=== PATIENT | male | born 1935 | race Caucasian/White ===

== ENCOUNTER 2019-06-02 05:22 | Inpatient (IN) | payer OTHER ==
[~2019-06-02] VITALS: Ht 172.7 cm; Wt 78.9 kg
[~2019-06-02 05:22] MED LIST: ACETAMINOPHEN-1 EAC1 PO; ACTOS15 MG PO; ADULT LOW DOSE81 MG; AMLODIPINE; ANAPROX; COUMADIN; DECONGESTANT NA15 ML NS; DICLOFENAC; GLIPIZIDE 10 MG10 MG PO; GLIPIZIDE ER2.5 MG; LISINOPRIL20 MG PO; NORVASC10 MG PO; OXYCODON-ACETA1 EAC1; SIMVASTATIN20 MG; TAMIFLU PO; TRADJENTA5 MG; VALIUM5 MG PO; VITAMIN D-32000 UNIT; VITAMIN D5000 UNIT PO; ZOCOR20 MG PO
[2019-06-02 06:23] VITALS: BP 177/84
--- NOTE | 2019-06-02 12:55 | NUR ---
PT ADMITTED RELATED TO LUMBAR LAMINECTOMY/DISCECTOMY. CM REVEIWED CHART AND SPOKE WITH CARE TEAM. CM MET WITH PT AND DTR AT BEDSIDE THIS DAY. PT IS A&0 X4. THEY INDICATED THAT THEY RESIDE TOGETHER IN A MOBILE HOME WITH 4 STEPS TO ENTER AND NO STEPS INSIDE. 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 PT INDICATED NO DME OR HH HX. PT INDICATED HE PLANS TO RETURN HOME [facility] MEDICALLY STABLE. CM TO FOLLOW INDICATED WITH DC PLANNING.
[2019-06-02 13:00] VITALS: BP 107/52
[2019-06-02 17:00] VITALS: BP 105/70
[2019-06-02 19:59] VITALS: BP 126/70
--- NOTE | 2019-06-03 04:22 | NUR ---
ASSUMED CARE OF PT @1900. PT A&OX4 AT THIS SHIFT. HEMOVAC DRAIN INTACT AND LARGE ABD DRESSING FROM POSTOP LAMINECTOMY INTACT. SCD'S IN PLACE. C/O BACK PAIN OF 8, PAIN MEDS GIVEN FOR MANAGEMENT. USES BEDSIDE URINAL AND MAKES NEEDS KNOWN TO NURSE. DTR SPEND THE NIGHT AT BEDSIDE. POC DONE AND FLUIDS INFUSING. POSSIBLE D/C TODAY WILL CONTINUR TO MONITO TILL EOS
[2019-06-03 05:04] VITALS: BP 151/79
--- NOTE | 2019-06-03 07:56 | O ---
[facility] [place] [address] OPERATIVE REPORT Name: SANJAY PETERSEN Room #: 462-P ADM IN M.R.#: [id number] Admission: 06/02/19 ������������������ Attend Phys: Homero Conroy MD Discharge: ������������������ Date of : 33 Report #: [id number] THIS REPORT FOR: //name// CC: Homero Amato DATE OF SERVICE: 06/02/2019 PREOPERATIVE DIAGNOSES: Lumbar spinal stenosis and lumbar disk herniation, L4-L5. POSTOPERATIVE DIAGNOSES: Lumbar spinal stenosis and lumbar disk herniation, L4-L5. PROCEDURE: Decompressive laminectomy at L4 and L5 for spinal stenosis and diskectomy at L4-L5. SURGEON: Homero Conroy M.D. INDICATIONS: This 83-year-old gentleman remains active and fully independent, living at home with his . He complains of progressive bilateral leg pain, numbness and weakness. He has difficulty with any prolonged standing or walking and has some sense of numbness and weakness in both lower legs and feet. His subjective symptoms are slightly greater on the right than the left, but involve both legs. He also notes moderate low back discomfort. Clinical exam, x-rays and MRI scan confirm moderate multilevel degenerative lumbar spondylosis. This involves some facet change and disk bulging at multiple levels. This is most severe at L4-L5, where the canal is quite narrow. The disk is bulging at that side, slightly more toward the left than the right. There is also disk bulging and foraminal narrowing at L5-S1, more toward the right than the left. There is similar, but less severe, bulging at L2-L3 and L3-L4 levels. I feel his problem is principally a generalized lumbar stenosis issue with contributing factors from disk bulging and facet hypertrophy as well as hypertrophy of the ligamentum. We have elected to go ahead with decompressive laminectomy principally to address the spinal stenosis at L4-L5 level, with a planned exploration of the disk at those two levels as well. DESCRIPTION OF PROCEDURE: The patient was taken to the operating room, where he was placed under general anesthesia. Prophylactic intravenous antibiotics were administered. He was turned to the prone position. The lower back was meticulously prepped and draped. C-arm was used to localize the appropriate level. A skin incision was made from the L3 down to the S1 level. This was carried through subcutaneous tissues and fascia, exposing the spinous process and lamina bilaterally. Once satisfactory exposure was established, the spinous process of L4 and L5 were removed and a laminectomy of those two levels was performed. This was accomplished with some difficulty as there was significant [facility] [address] [place] [address] OPERATIVE REPORT Name: SANJAY PETERESN Chey Room #: 462-P [facility] IN M.R.#: [id number] Admission: 06/02/19 ������������������ Attend Phys: Homero Conroy MD Discharge: ������������������ Date of : 34 Report #: [id number] canal stenosis and significant bony hypertrophy and spurring. The dissection was carried out laterally, both toward the right and left, undercutting the facet joint, but not removing the entire facet to maintain stability. This did seem to decompress the canal quite nicely. The dissection was carried proximally as the canal was still slightly tight partially through the L3 lamina. The extent of the dissection was checked with C-arm and felt to be satisfactory. Once the lateral gutters were debrided and the facet joint undercut, there seemed to be good resolution and improvement in the spinal stenosis. The disk was then carefully visualized at L4-L5 and L5-S1 levels. The L5-S1 disk is firm and mildly prominent, more toward the right than the left. This did not seem to be consistent with an extruded disk herniation and I felt the decompression from the laminectomy and foraminotomy was sufficient. No exploration of that disk was felt to be necessary. At L4-L5, the disk was much more prominent in the midline and extending more toward the left than the right. There was an area of marked attenuation of the annulus and ligamentum, but without an extruded fragment. This area was opened with an 11 blade and a moderate-sized disk fragment bolts forth. This was removed. A good deal of additional loose degenerative disk debris was removed from within the disk space. This seemed to decompress the disk nicely and the canal seemed to be further improved. This was confirmed with the C-arm with a probe in the disk, confirming this was at the L4-L5 level. At this point, I felt no further decompression was necessary. Good hemostasis was accomplished with Gelfoam and thrombin. The wound was copiously irrigated. No other abnormalities were identified. A small sheet of Gelfoam soaked in thrombin was left over the exposed dura. The muscle layer and fascia were closed with multiple #1 Vicryl sutures. This was supplemented with a running 0 Monocryl suture. A single Hemovac was left in the subcutaneous tissues with the tail extending below the fascia down to the level of the laminectomy. The drains seemed to be functioning nicely at the conclusion of the procedure and the bleeding seemed to be minimal at that point. The subcutaneous tissues were closed with 0 Monocryl. The skin was closed with skin elise. A sterile dressing was applied. The patient was then awakened and returned to the recovery room in good condition. ��������������������������������������������� <ELECTRONICALLY SIGNED> ���������������������������������������� By: Homero Conroy MD ��������������������������������������������� 06/03/19 [id number] Homero Conroy MD /nt
[2019-06-03 08:10] VITALS: BP 157/83
--- NOTE | 2019-06-03 14:49 | NUR ---
Nutrition: pt admitted S/P lumbar laminectomy/discectomy. Consult received-no reason stated. Pt on carb controlled diet. BG 252. On glipizide. Appetite is good and voices no diet related questions. Has lost 11# recently for intentional reasons. Has been cutting down on portions. No nutritional needs from RD. Low risk.
[2019-06-03 16:44] VITALS: BP 146/96
--- NOTE | 2019-06-03 18:40 | NUR ---
ASSUMED CARE 0700. PAIN MANAGED WITH MEDICATIONS, DRAIN REMOVED FROM BACK, BLADDER SCAN >450, STRAIGHT CATHH 550. NO BM NOTED AT THIS TIME. IMPULSIVE TO GET UP TO USE THE BATHROOM. FULL FALL PRECAUTIONS IN PLACE. DAUGHTER BEDSIDE. IF STABLE WILL DC HOME TOMORROW.
[2019-06-04 04:26] VITALS: BP 114/71
[2019-06-04 05:21] LABS: HEMATOCRIT 39.4 % (42.0-52.0); HEMOGLOBIN 13.3 gm/dL (14.0-18.0); MCH 32.4 pg (26.0-34.0); MCHC 33.8 g/dL (28.0-37.0); MCV 95.8 fL (80.0-100.0); PLATELET COUNT 129 thou/uL (150-400); RBC 4.11 mil/uL (4.50-6.00); WBC 10.1 thou/uL (4.0-11.0)
[2019-06-04 05:30] LABS: MAGNESIUM 1.5 mg/dL (1.8-2.4)
--- NOTE | 2019-06-04 05:52 | NUR ---
ASSUMED CARE OF PT @1900 PT. A&OX4 WITH C/O LOWER BACK PAIN. ABD IN LOWER BACK INTACT. PAIN MEDS GIVEN FOR MANAGEMENT PARTIAL RELIEF. BLADDER SCAN DONE AND >999ML STRAIGHT CATH AND GOT 1000ML RESIDUAL. DTR AT BEDSIDE AND CALL LIGHT WITHIN REACH. FALL PREC IN PLACE WILL CONTINUE TO MONITOR
[2019-06-04 06:32] LABS: ABSOLUTE NEUTROPHILS 7.5 thou/uL (1.4-8.2)
[2019-06-04 06:33] LABS: PLATELET ESTIMATE DECREASED
[2019-06-04 08:06] VITALS: BP 131/75
--- NOTE | 2019-06-04 10:23 | NUR ---
Chart reviewed and discussed with the care team. PT cleared pt for dc home with recommendations for RW and home erickatebrooks ann. Discussed with the pt and his at bedside. He has a new FWW from his neighbor and denies the need for a home PT visit. He has supportive spouse and gdtr to assist as needed and will f/u with his pcp as needed. No cm interventions indicated. Discussed with the hospitalist FREIGHT ENGINEER. Dc home today with outpt f/u.
[2019-06-04 10:58] LABS: CALCIUM 8.7 mg/dL (8.5-10.1); CREATININE 1.3 mg/dL (0.7-1.3); POTASSIUM 3.5 mmol/L (3.5-5.1)
[2019-06-04 12:05] LABS: URINE BILIRUBIN NEGATIVE (Negative); URINE BLOOD 3+ (Negative); URINE CLARITY CLEAR; URINE COLOR YELLOW; URINE GLUCOSE-RANDOM* 1+ (Negative); URINE KETONES TRACE (Negative); URINE LEUKOCYTES-REFLEX NEGATIVE (Negative); URINE NITRITE-REFLEX NEGATIVE (Negative); URINE PROTEIN (DIPSTICK) 1+ (Negative); URINE UROBILINOGEN 0.2 E.U./dl (0.2-1.0)
[2019-06-04 12:14] LABS: MUCUS >6 Heavy strn/LPF (None Seen); SQUAMOUS 0-3 Few /LPF (0-3)
[2019-06-04 12:15] LABS: BACTERIA-REFLEX None Seen /HPF (None Seen); CASTS None Seen /LPF (None Seen); CRYSTALS None Seen /LPF (None Seen); URINE RBC 3-10 Few /HPF (0-2); URINE WBC-REFLEX 0-5 Rare /HPF (0-5)
[2019-06-04] MEDS ORDERED: COLACE100 MG PO (15:17)
[2019-06-04] MEDS ORDERED: FLOMAX0.4 MG PO (15:17)
[2019-06-04] MEDS ORDERED: ASPIR 8181 MG PO (15:17)
[2019-06-04] MEDS ORDERED: MIRALAX17 GM PO (15:17)
[2019-06-04] MEDS ORDERED: HYDROCODON-ACE1 EAC7 PO (15:33)
[2019-06-04 15:43] VITALS: BP 131/75
--- NOTE | 2019-06-04 15:45 | NUR ---
CARE TEAM INDICATED THAT PT IS MEDICALLY STABLE TO DC HOME THIS DAY. PT IS TO DC HOME WITH A LAZARO IN PLACE. PT IS TO HAVE [facility]. PT HAS A WALKER FOR USE UPON DC. NO OTHER CM INTERVENTION INDICATED. CASE CLOSED.
[2019-06-04 15:46] VITALS: BP 109/48
--- NOTE | 2019-06-04 17:01 | NUR ---
pt stable throughout shift. placed veliz catheter for discharge, education provided family regarding use. changed dressing, incision appears well approximated and healing. pt given rx's, dc instructions and rx education. pt left unit via wheelchair to private vehicle.
== END 2019-06-04 18:45 | disposition home health service (06) | DRG 520 ==
LOC: TBA 05:22 → 4W 05:22 → PRE 05:22 → ENTRNSPT 06-04 17:10 → 4W 06-04 18:45
PROVIDERS: Nurse Practitioner; Nurse Practitioner Family; ADMIT Orthopaedic Surgery
PROC: 01NB0ZZ Release Lumbar Nerve, Open Approach (ICD-10-PCS; principal; 2019-06-02)
PROC: 0SB20ZZ Excision of Lumbar Vertebral Disc, Open Approach (ICD-10-PCS; principal; 2019-06-02)
DX: M48.061 Spinal stenosis, lumbar region without neurogenic claudication (principal); M51.36 Other intervertebral disc degeneration, lumbar region; E83.42 Hypomagnesemia; I10 Essential (primary) hypertension; E78.5 Hyperlipidemia, unspecified; E11.65 Type 2 diabetes mellitus with hyperglycemia; R33.9 Retention of urine, unspecified; M51.26 Other intervertebral disc displacement, lumbar region; M47.896 Other spondylosis, lumbar region; R54 Age-related physical debility; Z88.8 Allergy status to other drugs, medicaments and biological substances
CPT/HCPCS: 10047; 50010; 50101; 50402; 50704; 50850; 56525; 62110; 62900; 70005